=== PATIENT | male | born 1945 | race American Indian/Alaskan Native ===

== ENCOUNTER 2021-08-10 03:40 | Emergency (ER) | payer MEDICARE ==
--- NOTE | 2021-08-10 04:06 | Emergency Department Report ---
ED General Adult HPI - General Chief complaint: Hypoglycemia Stated complaint: LOW BS PUI?: No Time Seen by Provider: 08/10/21 04:02 Source: EMS Mode of arrival: Stretcher Limitations: No Limitations - History of Present Illness Initial comments: Patient is a 76-year-old male who presents emergency room with complaints of low blood sugar. Patient states he felt confused. Patient states that his family called EMS. Patient states that he believes he did not eat enough food for the amount of insulin that he is on. Patient states that his helps him with his medication. Patient states he has a history of memory issues, dementia diabetes hypertension. Patient answers most questions properly. Patient is alert and oriented x3. Patient states they gave him some food in route via EMS and is feeling much better. Patient states the confusion and malaise has resolved. Patient denies chest pain. Patient denies shortness of breath. Patient denies any pain. Patient denies any physical complaints. Patient denies recent travel. Patient denies recent international travel. Patient denies exposure to the novel coronavirus. Patient denies sick contacts. Patient denies fever and chills. Patient denies cough. Patient denies diarrhea. Patient denies coming in contact with anybody with symptoms of the novel coronavirus. -: Sudden Consistency: now resolved Improves with: eating Worsens with: none Associated Symptoms: confusion. denies: chest pain, cough, diaphoresis, fever/chills, headaches, loss of appetite, malaise, nausea/vomiting, rash, seizure, shortness of breath, syncope, weakness - Related Data Allergies Allergy/AdvReac Type Severity Reaction Status Date / Time No Known Allergies Allergy Verified 08/10/21 03:51 ED Review of Systems ROS: Stated complaint: LOW BS Other details as noted in HPI Constitutional: denies: chills, fever Eyes: denies: eye pain, eye discharge, vision change ENT: denies: ear pain, throat pain Respiratory: denies: cough, shortness of breath, wheezing Cardiovascular: denies: chest pain, palpitations Endocrine: no symptoms reported Gastrointestinal: denies: abdominal pain, nausea, diarrhea Genitourinary: denies: urgency, dysuria Musculoskeletal: denies: back pain, joint swelling, arthralgia Skin: denies: rash, lesions Neurological: denies: headache, weakness, paresthesias Psychiatric: denies: anxiety, depression Hematological/Lymphatic: denies: easy bleeding, easy bruising ED Past Medical Hx - Past Medical History Previous Medical History?: Yes Hx Hypertension: Yes Hx Diabetes: Yes Hx Dementia: Yes - Surgical History Past Surgical History?: No - Family History Family history: no significant - Social History Smoking Status: Never Smoker Substance Use Type: None ED Physical Exam - General Limitations: No Limitations General appearance: alert, in no apparent distress - Head Head exam: Present: atraumatic, normocephalic - Eye Eye exam: Present: normal appearance - ENT ENT exam: Present: mucous membranes moist - Neck Neck exam: Present: normal inspection - Respiratory Respiratory exam: Present: normal lung sounds bilaterally. Absent: respiratory distress - Cardiovascular Cardiovascular Exam: Present: regular rate, normal rhythm. Absent: systolic murmur, diastolic murmur, rubs, gallop - GI/Abdominal GI/Abdominal exam: Present: soft, normal bowel sounds - Rectal Rectal exam: Present: deferred - Extremities Exam Extremities exam: Present: normal inspection - Back Exam Back exam: Present: normal inspection - Neurological Exam Neurological exam: Present: alert, oriented X3 - Psychiatric Psychiatric exam: Present: normal affect, normal mood - Skin Skin exam: Present: warm, dry, intact, normal color. Absent: rash ED Course Vital Signs 08/10/21 08/10/21 08/10/21 00:58 01:00 01:30 Temperature Pulse Rate Respiratory Rate Blood Pressure 108/69 100/63 107/65 Blood Pressure [Left] O2 Sat by Pulse Oximetry 08/10/21 08/10/21 08/10/21 02:00 03:50 04:05 Temperature 99.5 F Pulse Rate 92 H 95 H Respiratory 18 15 Rate Blood Pressure 117/91 117/91 Blood Pressure 128/80 [Left] O2 Sat by Pulse 96 100 Oximetry 08/10/21 08/10/21 08/10/21 04:30 04:36 04:46 Temperature Pulse Rate 87 89 Respiratory 18 18 Rate Blood Pressure 127/80 127/80 Blood Pressure [Left] O2 Sat by Pulse 99 98 98 Oximetry - Reevaluation(s) Reevaluation #1: Patient's current blood sugar is 95. Patient states he is feeling fine. Patient will have labs done. We will continue to monitor the patient's blood sugar. 08/10/21 04:07 Reevaluation #2: I discussed all results and clinical findings with patient. I discussed plan of care with patient. Patient agrees with plan of care. Patient is stable for discharge. Patient will be discharged home. Patient given discharge instructions. Patient voiced understanding of discharge instructions. 08/10/21 04:57 ED Medical Decision Making - Lab Data Result diagrams: 08/10/21 04:06 08/10/21 04:06 - Medical Decision Making Patient is a 76-year-old male who presents emergency for hyperglycemia and hypoglycemia induced confusion. Patient was given patient letter include EMS and the patient's sugar improved and patient symptoms resolved. Patient denied any complaints upon initial evaluation. Patient has history of dementia but answers most questions appropriately. Patient had his sugar monitored throughout the time in the ER and maintained within normal limits. Patient had labs done which were essentially unremarkable. Patient is stable for discharge. Patient not require any further emergency medical service. Patient not require inpatient services. Patient's final blood sugar was 154. Patient tolerating p.o. intake. Patient stable for discharge. I discussed all results and clinical findings with patient. I discussed plan of care with patient. Patient agrees with plan of care. Patient is stable for discharge. Patient will be discharged home. Patient given discharge instructions. Patient voiced understanding of discharge instructions. - Differential Diagnosis Hyperglycemia, inadequate caloric intake. Critical care attestation.: If time is entered above; I have spent that time in minutes in the direct care of this critically ill patient, excluding procedure time. ED Disposition Clinical Impression: Hypoglycemia Disposition: 01 HOME / SELF CARE / HOMELESS Is pt being admited?: No Does the pt Need Aspirin: No Condition: Stable Instructions: Preventing Hypoglycemia, Preventing Type 2 Diabetes Mellitus Additional Instructions: Patient to follow-up with primary care in 2 to 3 days. Patient to rest. Patient to increase water. Patient to eat adequate p.o. intake for insulin dos e. Patient continue all medications. Patient to return to the ER if condition worsens, changes or new symptoms arise. Time of Disposition: 04:59
[2021-08-10 04:39] LABS: Alanine Aminotransferase 36 units/L (7-56); Albumin 3.5 g/dL (3.9-5); BUN/Creatinine Ratio 17; Blood Urea Nitrogen 17 mg/dL (9-20); Calcium 9.7 mg/dL (8.4-10.2); Hematocrit 32.2 % (35.5-45.6); Hemoglobin 11.1 gm/dl (11.8-15.2); Hemolysis Index 7; Mean Corpuscular HGB Conc 35 % (32-34); Mean Corpuscular Volume 91 fl (84-94); Platelet Count 239 K/mm3 (140-440); Red Blood Count 3.52 M/mm3 (3.65-5.03); Red Cell Distribution Width 14.6 % (13.2-15.2)
[2021-08-10 04:49] VITALS: BP 127/80
[2021-08-10] MEDS ORDERED: ACETAMINOPHEN 500 MG TAB PO ONE (05:57)
== END 2021-08-10 07:00 | disposition home or self-care (01) ==
LOC: ED 03:40
DX: E11.649 Type 2 diabetes mellitus with hypoglycemia without coma (principal); I10 Essential (primary) hypertension
CPT/HCPCS: 36415; 80053; 82962; 85027; 99284